=== PATIENT | male | born 1975 | race Caucasian/White ===

== ENCOUNTER 2018-07-07 14:36 | Emergency (ER) | payer SELFPAY ==
--- NOTE | 2018-07-07 14:41 | EDPHY ---
H & P Time Seen by Provider: 07/07/18 14:39 HPI/ROS: CHIEF COMPLAINT: Collapsed, received CPR HISTORY OF PRESENT ILLNESS: The patient was at a football game. He reportedly collapsed. He reportedly was unresponsive. He received approximately a minute of CPR by bystanders. Paramedics placed the patient on a monitor and noted a sinus rhythm. The patient had pulses at the time of their evaluation. The patient arrives confused and unable to provide much history. He denies any drug or alcohol use. He denies taking any regular medications. He is uncertain of the events which precipitated his arrival in the emergency department today. REVIEW OF SYSTEMS: A comprehensive 10 point review of systems is otherwise negative aside from elements mentioned in the history of present illness. Source: Patient, EMS - Medical/Surgical History PMH: Past medical history: Alcoholism and anxiety - Family History Significant Family History: No pertinent family hx - Social History Smoking Status: Unknown if ever smoked Alcohol Use: Heavy - Physical Exam Exam: General Appearance: Somnolent, alcohol on breath, uncooperative Eyes: Pupils equal and round no pallor or injection ENT, Mouth: Mucous membranes moist Respiratory: There are no retractions, lungs are clear to auscultation Cardiovascular: Regular rate and rhythm Gastrointestinal: Abdomen is soft and nontender, no masses, bowel sounds normal Neurological: Withdrawals to pain all 4 extremities, slurred speech Skin: Warm and dry, no rashes Musculoskeletal: Neck is supple nontender Extremities: symmetrical, full range of motion Constitutional: Initial Vital Signs Temperature (C) 36.9 C 07/07/18 14:38 Heart Rate 115 H 07/07/18 14:38 Respiratory Rate 16 07/07/18 14:38 Blood Pressure 137/83 H 07/07/18 14:38 O2 Sat (%) 95 07/07/18 14:38 O2 Delivery Mode Room Air O2 (L/minute) 2 Allergies/Adverse Reactions: Unable to Assess Allergy (Unverified 07/07/18 14:37) Home Medications: Medication Instructions Recorded NK [No Known Home Meds] 07/07/18 Medical Decision Making - Diagnostics EKG Interpretation: EKG: Complete interpretation has been separately recorded in the [employer] archive. Summary impression: Sinus tachycardia, rate 116, no ST segment elevation or depression noted Imaging Results: Imaging Impressions Chest X-Ray 07/07/18 14:39 Impression: Negative portable chest ED Course/Re-evaluation: The patient presents the emergency department after he allegedly collapsed at a football game. He reportedly received bystander CPR for 2 min. His initial rhythm was a sinus tachycardia. He was brought to the ED for further evaluation. He is quite somnolent in the emergency department with alcohol on his breath. The patient's initial EKG demonstrates no evidence of an injury pattern. Workup in the emergency department demonstrated normal glucose and metabolic panel. The patient's blood alcohol level was .531. Collateral information was obtained from family over the phone that the patient does have a history of alcoholism and reportedly had been left alone prior to the football game today. The patient has been placed on a rn cardiac. He will be observed in the emergency department. His examination is one consistent with severe alcohol intoxication. I re-evaluated the patient at 6:40 p.m.. The patient is much more alert and oriented. He is ambulatory with minimal assistance. The patient denies any chest pain or shortness of breath. He does report drinking heavily today. The patient would like to be discharged from the emergency department. I reviewed the patient's laboratory studies. While the patient's D-dimer was slightly elevated I do not think that this is reflective of a massive thromboembolic event which was an explanation for his unresponsiveness. He presents to the ED with severe alcohol intoxication. The patient has had no evidence of a significant arrhythmia noted in the ED. He responded to IV fluids. A tertiary survey demonstrates no evidence of an acute traumatic injury , he has no evidence of an acute abdomen. He is neurologically intact aside from mild alcohol intoxication currently. 7:45 p.m.: The patient has been discharged with his brother. He will keep a close eye on the patient this evening. He understands return to the ED for the development of any chest pain, shortness of breath, cough or fever. He has been advised about his excess alcohol consumption and the risk that this continues to pose. The patient has been given outpatient resources for his alcohol dependence. Differential Diagnosis: Differential diagnosis considered includes cardiac arrest, respiratory arrest, dehydration, alcohol intoxication, overdose Critical Care Time: Critical care time exclusive of procedures and exclusive of the PA's time was 65 minutes, performed by myself, Brett Rivas MD. Patient presents to the ED with altered mental status and severe alcohol intoxication. He was initially brought in as a cardiac alert having received CPR from bystanders. He required close observation in the emergency department for evidence of respiratory depression or hemodynamic compromise. - Data Points Laboratory Results: Laboratory Results 07/07/18 14:41 07/07/18 14:41 07/07/18 07/07/18 07/07/18 18:40 15:05 14:42 WBC RBC Hgb POC Hgb 14.6 gm/dL gm/dL (13.7-17.5) Hct POC Hct 43 % % (40-51) MCV MCH MCHC RDW Plt Count MPV Neut % (Auto) Lymph % (Auto) [place] % (Auto) Eos % (Auto) Baso % (Auto) Nucleat RBC Rel Count Absolute Neuts (auto) Absolute Lymphs (auto) Absolute Monos (auto) Absolute Eos (auto) Absolute Basos (auto) Absolute Nucleated RBC Immature Gran % Immature Gran # D-Dimer 0.56 ug/mLFEU H ug/mLFEU (0.00-0.50) POC Sodium 142 mEq/L mEq/L (135-145) Sodium POC Potassium 3.7 mEq/L mEq/L (3.3-5.0) Potassium POC Chloride 105 mEq/L mEq/L (97-110) Chloride Carbon Dioxide Anion Gap POC BUN 11 mg/dL mg/dL (7-23) BUN Creatinine POC Creatinine 1.2 mg/dL mg/dL (0.7-1.3) Estimated GFR Glucose POC Glucose 128 mg/dL H mg/dL (70-100) Calcium POC Troponin I Urine Opiates Screen NEGATIVE (NEGATIVE) Urine Barbiturates NEGATIVE (NEGATIVE) Ur Phencyclidine Scrn NEGATIVE (NEGATIVE) Ur Amphetamine Screen NEGATIVE (NEGATIVE) U Benzodiazepines Scrn NEGATIVE (NEGATIVE) Urine Cocaine Screen NEGATIVE (NEGATIVE) U Marijuana (THC) Screen NEGATIVE (NEGATIVE) Ethyl Alcohol 07/07/18 07/07/18 07/07/18 14:41 14:41 14:41 WBC RBC Hgb POC Hgb Hct POC Hct MCV MCH MCHC RDW Plt Count MPV Neut % (Auto) Lymph % (Auto) [place] % (Auto) Eos % (Auto) Baso % (Auto) Nucleat RBC Rel Count Absolute Neuts (auto) Absolute Lymphs (auto) Absolute Monos (auto) Absolute Eos (auto) Absolute Basos (auto) Absolute Nucleated RBC Immature Gran % Immature Gran # D-Dimer REJ POC Sodium Sodium 141 mEq/L mEq/L (135-145) POC Potassium Potassium 4.4 mEq/L mEq/L (3.3-5.0) POC Chloride Chloride 107 mEq/L mEq/L (97-110) Carbon Dioxide 19 mEq/l L mEq/l (22-31) Anion Gap 15 mEq/L H mEq/L (6-14) POC BUN BUN 12 mg/dL mg/dL (7-23) Creatinine 0.8 mg/dL mg/dL (0.7-1.3) POC Creatinine Estimated GFR > 60 Glucose 119 mg/dL H mg/dL (70-100) POC Glucose Calcium 8.3 mg/dL L mg/dL (8.5-10.4) POC Troponin I 0.01 ng/mL ng/mL (0.00-0.08) Urine Opiates Screen Urine Barbiturates Ur Phencyclidine Scrn Ur Amphetamine Screen U Benzodiazepines Scrn Urine Cocaine Screen U Marijuana (THC) Screen Ethyl Alcohol 531 mg/dL H* mg/dL (0-10) 07/07/18 14:41 WBC 8.65 10^3/uL 10^3/uL (3.80-9.50) RBC 4.13 10^6/uL L 10^6/uL (4.40-6.38) Hgb 14.3 g/dL g/dL (13.7-17.5) POC Hgb Hct 40.2 % % (40.0-51.0) POC Hct MCV 97.3 fL fL (81.5-99.8) MCH 34.6 pg H pg (27.9-34.1) MCHC 35.6 g/dL g/dL (32.4-36.7) RDW 12.5 % % (11.5-15.2) Plt Count 428 10^3/uL H 10^3/uL (150-400) MPV 8.5 fL L fL (8.7-11.7) Neut % (Auto) 67.4 % % (39.3-74.2) Lymph % (Auto) 24.6 % % (15.0-45.0) [place] % (Auto) 5.4 % % (4.5-13.0) Eos % (Auto) 0.5 % L % (0.6-7.6) Baso % (Auto) 1.3 % % (0.3-1.7) Nucleat RBC Rel Count 0.0 % % (0.0-0.2) Absolute Neuts (auto) 5.83 10^3/uL 10^3/uL (1.70-6.50) Absolute Lymphs (auto) 2.13 10^3/uL 10^3/uL (1.00-3.00) Absolute Monos (auto) 0.47 10^3/uL 10^3/uL (0.30-0.80) Absolute Eos (auto) 0.04 10^3/uL 10^3/uL (0.03-0.40) Absolute Basos (auto) 0.11 10^3/uL H 10^3/uL (0.02-0.10) Absolute Nucleated RBC 0.00 10^3/uL 10^3/uL (0-0.01) Immature Gran % 0.8 % % (0.0-1.1) Immature Gran # 0.07 10^3/uL 10^3/uL (0.00-0.10) D-Dimer POC Sodium Sodium POC Potassium Potassium POC Chloride Chloride Carbon Dioxide Anion Gap POC BUN BUN Creatinine POC Creatinine Estimated GFR Glucose POC Glucose Calcium POC Troponin I Urine Opiates Screen Urine Barbiturates Ur Phencyclidine Scrn Ur Amphetamine Screen U Benzodiazepines Scrn Urine Cocaine Screen U Marijuana (THC) Screen Ethyl Alcohol Point of Care Test Results: Chemistry 07/07/18 07/07/18 14:42 14:41 POC Sodium 142 mEq/L mEq/L (135-145) POC Potassium 3.7 mEq/L mEq/L (3.3-5.0) POC Chloride 105 mEq/L mEq/L (97-110) POC BUN 11 mg/dL mg/dL (7-23) POC Creatinine 1.2 mg/dL mg/dL (0.7-1.3) POC Glucose 128 mg/dL H mg/dL (70-100) POC Troponin I 0.01 ng/mL ng/mL (0.00-0.08) ISTAT H&H 07/07/18 14:42 POC Hgb 14.6 gm/dL gm/dL (13.7-17.5) POC Hct 43 % % (40-51) Departure - Departure Disposition: Home, Routine, Self-Care Clinical Impression: Collapse, Very severe alcohol intoxication Condition: Good Instructions: Alcohol Intoxication (ED) Additional Instructions: 1. If you continue to drink alcohol in excess your risk for serious injury, , infection and stroke. 2. You have been provided the information for the [facility] if you desire assistance quitting alcohol. 3. Return to the emergency department for any chest pain, shortness of breath, abdominal pain, headache, numbness, weakness or other concerns. Referrals: [facility] [Outside] - As per Instructions
[2018-07-07 15:12] LABS: PLATELET COUNT 428 10^3/uL (150-400)
--- NOTE | 2018-07-07 15:20 | CPEKG ---
Test Reason : OPEN Blood Pressure : / mmHG Vent. Rate : 116 BPM Atrial Rate : 115 BPM P-R Int : 171 ms QRS Dur : 102 ms QT Int : 332 ms P-R-T Axes : 055 086 026 degrees QTc Int : 462 ms Sinus tachycardia Anteroseptal infarct, old Confirmed by Brett Rivas ([id number]) on 07/07/2018 3:19:40 PM Referred By: Confirmed By:Brett Rivas
[2018-07-07 19:50] VITALS: BP 120/65
== END 2018-07-07 19:49 | disposition home or self-care (01) ==
LOC: EDUNIT#
DX: R55 Syncope and collapse (principal); F10.229 Alcohol dependence with intoxication, unspecified; F41.9 Anxiety disorder, unspecified
CPT/HCPCS: 80305; 82435-PO; 82565-PO; 82947-PO; 84132-PO; 84295-PO; 84484-PO; 84520-PO; 85014-PO; G0480